=== PATIENT | female | born 1955 | race African-American/Black ===

== ENCOUNTER 2017-06-06 16:06 | Emergency (ER) | payer MEDICARE, MEDICAID ==
[~2017-06-06] VITALS: Ht 170.2 cm; Wt 68.0 kg
[~2017-06-06 16:06] MED LIST: ABAC1TAB3 PO; ACYC800T PO; AMLO5TAB4 PO; BACL20TA PO; BUSP10TA3 PO; DOLU50TA PO; FAMO20TA8 PO; GABA-534 PO; GUAI-671 PO; Gabapentin PO; LORA2TAB PO; MEGE40TA PO; MORP60CA18 PO; NYSTATIN PO; OXYB5TAB11 PO; OXYC-133 PO; TRAZ-147 PO
[2017-06-06] MEDS ORDERED: TRAM50TA2 PO (16:41)
--- NOTE | 2017-06-06 17:00 | NUR ---
US TECH VERBALIZED, THAT "I'LL BE BACK, BLADDER NEEDS TO BE FULL."
[2017-06-06 17:19] LABS: BASOPHILS # (AUTO) 0.1 K/uL (0.0-8.0); EOSINOPHILS # (AUTO) 0.2 K/uL (0.0-0.7); EOSINOPHILS % (AUTO) 3.3 % (0.0-7.0); HEMATOCRIT 41.7 % (37-47); HEMOGLOBIN 13.6 G/DL (12.0-16.0); LYMPHOCYTES # (AUTO) 2.6 K/UL (0.8-4.8); LYMPHOCYTES % (AUTO) 41.8 % (20.5-51.5); MEAN CORPUSCULAR HEMOGLOBIN 32.4 UUG (27.0-31.0); MEAN CORPUSCULAR HGB CONC 33 g/dL (32.0-37.0); MEAN CORPUSCULAR VOLUME 99.8 FL (81.0-99.0); MONOCYTES # (AUTO) 0.5 K/UL (0.1-1.30); MONOCYTES % (AUTO) 8.6 % (0.0-11.0); NEUTROPHILS # (AUTO) 2.8 K/UL (1.8-8.9); NEUTROPHILS % (AUTO) 45.3 % (38.5-71.5); PLATELET COUNT (AUTO) 213 K/UL (150-450); RED BLOOD CELL COUNT(AUTO) 4.18 MIL/UL (4.2-5.4); WHITE BLOOD COUNT (AUTO) 6.2 K/UL (4.0-11.2)
[2017-06-06 17:24] LABS: CREATININE 0.9 mg/dL (0.6-1.3); POTASSIUM 3.6 mmol/L (3.5-5.1)
[2017-06-06 17:30] LABS: BILIRUBIN,DIRECT 0.1 mg/dL (0.0-0.2); BILIRUBIN,TOTAL 0.3 mg/dL (0.2-1.0); TOTAL PROTEIN, SERUM 7.4 g/dL (6.4-8.2)
--- NOTE | 2017-06-06 17:53 | NUR ---
US TECH AT BEDSIDE
--- NOTE | 2017-06-06 18:23 | NUR ---
Patient discharged to home in stable conditon. Written and verbal after care instructions given. Patient verbalizes understanding of instructions.
[2017-06-06 18:24] VITALS: BP 112/71
== END 2017-06-06 18:25 | disposition home or self-care (01) ==
LOC: ER 16:08
DX: N95.0 Postmenopausal bleeding (principal); G43.909 Migraine, unspecified, not intractable, without status migrainosus; I10 Essential (primary) hypertension; M19.90 Unspecified osteoarthritis, unspecified site; Z88.0 Allergy status to penicillin
CPT/HCPCS: 36415; 76856; 85025; 85730; 86850; 86900; 86901; A4663

== ENCOUNTER 2017-11-12 16:39 | Inpatient (IN) | payer MEDICARE, MEDICAID ==
[~2017-11-12] VITALS: Ht 170.2 cm; Wt 73.9 kg
[~2017-11-12 16:39] MED LIST changes: -ABAC1TAB3 PO; -ACYC800T PO; -GABA-534 PO; -NYSTATIN PO; +TRAM50TA2 PO
[2017-11-12] MEDS ORDERED: ALBUTEROL SULFATE 2.5 MG/3 ML NEBU ONE ×2 (19:43→21:45)
[2017-11-12] MEDS ORDERED: ALBUTEROL SULFATE 2.5 MG/ 0.5 ML NEBU ONE ×2 (19:43→21:45)
[2017-11-12] MEDS ORDERED: MORPHINE SULFATE 4 MG/1 ML DISP.SYRIN IV ONE (19:45)
[2017-11-12] MEDS ORDERED: CEFTRIAXONE 1 G in IV DEXTROSE 5% 50 ML IV ONE (19:45)
[2017-11-12] MEDS ORDERED: AZITHROMYCIN IV 500 MG in IV DEXTROSE 5% 250 ML IV ONE (19:45)
[2017-11-12] MEDS ORDERED: BENZONATATE 100 MG CAPSULE PO ONE (19:45)
[2017-11-12] MEDS ORDERED: ALBUTEROL SULFATE 2.5 MG/3 ML NEBU NEB ONE ×2 (19:45→20:30)
[2017-11-12] MEDS ORDERED: BENZONATATE 100 MG CAPSULE ONE (20:21)
[2017-11-12] MEDS ORDERED: AZITHROMYCIN 250 MG TABLET ONE (20:21)
[2017-11-12] MEDS ORDERED: HYDROMORPHONE 4 MG/1 ML DISP.SYRIN ONE (20:22)
[2017-11-12] MEDS ORDERED: ONDANSETRON ODT 4 MG TAB.RAPDIS ONE (20:22)
[2017-11-12] MEDS ORDERED: LIDOCAINE HCL 2% 20 ML VIAL ONE (20:22)
[2017-11-12] MEDS ORDERED: CEFTRIAXONE 1 G VIAL ONE (20:22)
[2017-11-12] MEDS ORDERED: ONDANSETRON ODT 4 MG TAB.RAPDIS SL ONE (20:30)
[2017-11-12] MEDS ORDERED: HYDROMORPHONE 1 MG/1 ML DISP.SYRIN IM ONE (20:30)
[2017-11-12] MEDS ORDERED: IPRATROPIUM BROMIDE 0.5 MG/2.5 ML NEBU NEB ONE (20:30)
[2017-11-12] MEDS ORDERED: AZITHROMYCIN 250 MG TABLET PO ONE (21:00)
[2017-11-12] MEDS ORDERED: CEFTRIAXONE 1 G VIAL IM ONE (21:00)
[2017-11-12 21:33] LABS: *BILIRUBIN,URIN NEGATIVE (NEGATIVE); *BLOOD, URINE NEGATIVE (NEGATIVE); *CLARITY,URINE CLEAR (CLEAR); *COLOR,URINE YELLOW (YELLOW); *KETONES,URINE NEGATIVE (NEGATIVE); *PROTEIN,URINE 1+ (NEGATIVE); *UROBILINOGEN,URINE 0.2 E.U./dl (NORMAL); LEUKOCYTE ESTERASE ,URINE NEGATIVE (NEGATIVE); NITRITE, URINE NEGATIVE (NEGATIVE); UGLUCOSE TRACE (NEGATIVE)
[2017-11-12 21:42] LABS: BILIRUBIN,DIRECT 0.1 mg/dL (0.0-0.2); BILIRUBIN,TOTAL 0.4 mg/dL (0.2-1.0); POTASSIUM 4.3 mmol/L (3.5-5.1); TOTAL PROTEIN, SERUM 7.7 g/dL (6.4-8.2)
[2017-11-12] MEDS ORDERED: IPRATROPIUM BROMIDE 0.5 MG/2.5 ML NEBU ONE (21:45)
[2017-11-12 21:47] LABS: BASOPHILS # (AUTO) 0.1 K/uL (0.0-8.0); BASOPHILS % (AUTO) 0.5 % (0.0-2.0); EOSINOPHILS # (AUTO) 0.1 K/uL (0.0-0.7); EOSINOPHILS % (AUTO) 0.4 % (0.0-7.0); HEMATOCRIT 38.7 % (31.2-41.9); HEMOGLOBIN 12.8 g/dL (10.9-14.3); LYMPHOCYTES # (AUTO) 1.2 K/uL (20.0-40.0); LYMPHOCYTES % (AUTO) 7.9 % (20.5-51.5); MEAN CORPUSCULAR HEMOGLOBIN 33.5 uug (24.7-32.8); MEAN CORPUSCULAR HGB CONC 33 g/dL (32.3-35.6); MONOCYTES # (AUTO) 1.4 K/uL (2.0-10.0); MONOCYTES % (AUTO) 8.7 % (0.0-11.0); NEUTROPHILS # (AUTO) 12.9 K/uL (1.8-8.9); NEUTROPHILS % (AUTO) 82.5 % (38.5-71.5); PLATELET COUNT (AUTO) 234 K/uL (179-408); RED BLOOD CELL COUNT(AUTO) 3.83 MIL/uL (3.63-4.92); WHITE BLOOD COUNT (AUTO) 15.7 K/uL (3.8-11.8)
[2017-11-12 21:58] LABS: RBC,URINE 0-3 /HPF (0-3); WBC,URINE 0-3 /HPF (0-3)
[2017-11-12 21:59] LABS: BACTERIA,URINE NONE SEEN /HPF (NONE SEEN); SQUAMOUS EPITHELIAL CELL,UR NONE SEEN /HPF (NONE SEEN)
[2017-11-13 00:24] VITALS: BP 115/65
[2017-11-13] MEDS ORDERED: HYDROMORPHONE 2 MG/1 ML DISP.SYRIN IV PRN (03:00)
[2017-11-13] MEDS ORDERED: AZITHROMYCIN IV 500 MG in IV DEXTROSE 5% 250 ML IV SCH ×2 (03:00→21:00)
[2017-11-13] MEDS ORDERED: IPRATROPIUM BROMIDE 0.5 MG/2.5 ML NEBU NEB PRN (03:15)
[2017-11-13] MEDS ORDERED: ALBUTEROL SULFATE 2.5 MG/3 ML NEBU NEB PRN (03:15)
[2017-11-13] MEDS ORDERED: TRAZODONE 100 MG TABLET PO PRN (03:15)
[2017-11-13 04:00] VITALS: BP 114/65
[2017-11-13 07:37] LABS: BASOPHILS % (AUTO) 0.3 % (0.0-2.0); EOSINOPHILS % (AUTO) 0.1 % (0.0-7.0); HEMATOCRIT 38.9 % (31.2-41.9); HEMOGLOBIN 12.7 g/dL (10.9-14.3); LYMPHOCYTES # (AUTO) 1.5 K/uL (20.0-40.0); LYMPHOCYTES % (AUTO) 8.6 % (20.5-51.5); MEAN CORPUSCULAR HEMOGLOBIN 32.9 uug (24.7-32.8); MEAN CORPUSCULAR HGB CONC 33 g/dL (32.3-35.6); MEAN CORPUSCULAR VOLUME 100.9 fL (75.5-95.3); MONOCYTES # (AUTO) 1.5 K/uL (2.0-10.0); MONOCYTES % (AUTO) 8.2 % (0.0-11.0); NEUTROPHILS # (AUTO) 14.7 K/uL (1.8-8.9); NEUTROPHILS % (AUTO) 82.8 % (38.5-71.5); PLATELET COUNT (AUTO) 234 K/uL (179-408); RED BLOOD CELL COUNT(AUTO) 3.86 MIL/uL (3.63-4.92); WHITE BLOOD COUNT (AUTO) 17.8 K/uL (3.8-11.8)
[2017-11-13 07:58] LABS: BILIRUBIN,TOTAL 0.3 mg/dL (0.2-1.0); PHOSPHOROUS 2.9 mg/dL (2.5-4.9); POTASSIUM 4.5 mmol/L (3.5-5.1); TOTAL PROTEIN, SERUM 7.6 g/dL (6.4-8.2)
[2017-11-13] MEDS: MORPHINE SULFATE 4 MG/1 ML DISP.SYRIN IV PRN ×3 (08:32→20:46)
[2017-11-13] MEDS: ENOXAPARIN SODIUM 40 MG/0.4 ML DISP.SYRIN SQ SCH (08:33)
[2017-11-13] MEDS: FAMOTIDINE 20 MG TABLET PO SCH (08:36)
[2017-11-13] MEDS: busPIRone 10 MG TABLET PO SCH ×3 (08:36→17:56)
[2017-11-13] MEDS: BACLOFEN 20 MG TABLET PO SCH ×3 (08:36→17:55)
[2017-11-13] MEDS: OXYBUTYNIN CHLORIDE 5 MG TABLET PO SCH ×2 (08:36→17:55)
[2017-11-13] MEDS: IPRATROPIUM BROMIDE 0.5 MG/2.5 ML NEBU NEB PRN ×2 (08:48→21:16)
[2017-11-13] MEDS: ALBUTEROL SULFATE 1.25 MG/3 ML NEBU NEB PRN ×2 (08:49→21:16)
[2017-11-13] MEDS ORDERED: Medication Not On Formulary EA (Dolutegravir Sodium (Tivicay) 50 MG) PO SCH (09:00)
[2017-11-13] MEDS ORDERED: MORPHINE SULFATE 60 MG PO SCH (09:00)
[2017-11-13] MEDS ORDERED: AMLODIPINE 5 MG TABLET PO SCH (09:00)
[2017-11-13] MEDS ORDERED: LEVOFLOXACIN 500 MG/D5W 500 MG in PREMIXED 1 EACH IV ONE (09:00)
[2017-11-13] MEDS ORDERED: ABAC1TAB3 PO (11:27)
[2017-11-13 11:34] VITALS: BP 148/84
[2017-11-13] MEDS ORDERED: Medication Not On Formulary EA (Abacavir Sulfate/Lamivudine (Epzicom Tablet) 1 TAB) PO SCH (12:00)
[2017-11-13] MEDS: TRAMADOL HCL 50 MG TABLET PO SCH ×2 (12:19→20:42)
[2017-11-13] MEDS: MEGESTROL ACETATE 20 MG TABLET PO SCH ×3 (12:19→23:53)
[2017-11-13] MEDS ORDERED: MORPHINE SULFATE 2 MG/1 ML DISP.SYRIN IM SCH (16:00)
[2017-11-13 16:18] VITALS: BP 152/85
[2017-11-13] MEDS: LORAZEPAM 1 MG TABLET PO SCH (16:44)
[2017-11-13] MEDS: GABAPENTIN 300 MG CAPSULE PO SCH (17:55)
[2017-11-13] MEDS: ACETAMINOPHEN ES 500 MG TABLET PO PRN (17:56)
[2017-11-13 20:31] VITALS: BP 143/89
[2017-11-13] MEDS: TRAZODONE 100 MG TABLET PO SCH (20:43)
[2017-11-13] MEDS ORDERED: TRAZODONE 100 MG TABLET PO SCH (21:00)
[2017-11-13] MEDS: GUAIFENESIN/CODEINE 5 ML LIQUID UDC PO PRN (21:42)
[2017-11-13] MEDS: IV 1/2NS 1000 ML 1,000 ML IV PRN (22:45)
[2017-11-14] MEDS: MORPHINE SULFATE 4 MG/1 ML DISP.SYRIN IV PRN ×5 (03:38→21:38)
[2017-11-14] MEDS: ACETAMINOPHEN ES 500 MG TABLET PO PRN ×2 (03:40→19:41)
[2017-11-14] MEDS: GUAIFENESIN/CODEINE 5 ML LIQUID UDC PO PRN ×2 (03:49→12:57)
[2017-11-14 04:30] VITALS: BP 145/66
[2017-11-14] MEDS: MEGESTROL ACETATE 20 MG TABLET PO SCH ×3 (06:03→17:20)
[2017-11-14 06:55] LABS: BASOPHILS # (AUTO) 0.1 K/uL (0.0-8.0); BASOPHILS % (AUTO) 0.4 % (0.0-2.0); EOSINOPHILS # (AUTO) 0.2 K/uL (0.0-0.7); EOSINOPHILS % (AUTO) 1.2 % (0.0-7.0); HEMATOCRIT 36.8 % (31.2-41.9); HEMOGLOBIN 12.1 g/dL (10.9-14.3); LYMPHOCYTES # (AUTO) 2.4 K/uL (20.0-40.0); LYMPHOCYTES % (AUTO) 16.7 % (20.5-51.5); MEAN CORPUSCULAR HEMOGLOBIN 33.2 uug (24.7-32.8); MEAN CORPUSCULAR HGB CONC 33 g/dL (32.3-35.6); MEAN CORPUSCULAR VOLUME 100.9 fL (75.5-95.3); MONOCYTES # (AUTO) 1.4 K/uL (2.0-10.0); MONOCYTES % (AUTO) 9.8 % (0.0-11.0); NEUTROPHILS # (AUTO) 10.4 K/uL (1.8-8.9); NEUTROPHILS % (AUTO) 71.9 % (38.5-71.5); PLATELET COUNT (AUTO) 255 K/uL (179-408); RED BLOOD CELL COUNT(AUTO) 3.65 MIL/uL (3.63-4.92); WHITE BLOOD COUNT (AUTO) 14.4 K/uL (3.8-11.8)
[2017-11-14 07:17] LABS: BILIRUBIN,TOTAL 0.2 mg/dL (0.2-1.0); CREATININE 0.9 mg/dL (0.6-1.3); MAGNESIUM 1.9 mg/dL (1.8-2.4); PHOSPHOROUS 3.4 mg/dL (2.5-4.9); TOTAL PROTEIN, SERUM 7.3 g/dL (6.4-8.2)
[2017-11-14] MEDS ORDERED: MORP60TA34 PO (08:20)
[2017-11-14] MEDS: MORPHINE SULFATE SR 30 MG TABLET.SA PO SCH ×2 (09:00→21:00)
[2017-11-14] MEDS: ENOXAPARIN SODIUM 40 MG/0.4 ML DISP.SYRIN SQ SCH (09:00)
[2017-11-14] MEDS: OXYBUTYNIN CHLORIDE 5 MG TABLET PO SCH ×2 (09:07→16:50)
[2017-11-14] MEDS: FAMOTIDINE 20 MG TABLET PO SCH (09:07)
[2017-11-14] MEDS: GABAPENTIN 300 MG CAPSULE PO SCH ×3 (09:07→16:50)
[2017-11-14] MEDS: TRAMADOL HCL 50 MG TABLET PO SCH ×2 (09:07→21:15)
[2017-11-14] MEDS: BACLOFEN 20 MG TABLET PO SCH ×3 (09:07→16:50)
[2017-11-14] MEDS: LORAZEPAM 1 MG TABLET PO SCH ×2 (09:07→16:51)
[2017-11-14] MEDS: busPIRone 10 MG TABLET PO SCH ×3 (09:07→16:50)
[2017-11-14 09:50] VITALS: BP 131/73
[2017-11-14] MEDS: LEVOFLOXACIN 500 MG/D5W 500 MG in PREMIXED 1 EACH IV SCH (09:50)
[2017-11-14] MEDS: TIVICAY 50 MG PO SCH (09:50)
[2017-11-14] MEDS: EPZICOM PO SCH (09:50)
[2017-11-14 11:42] VITALS: BP 109/70
[2017-11-14] MEDS: IV 1/2NS 1000 ML 1,000 ML IV PRN (11:54)
[2017-11-14 15:53] VITALS: BP 116/71
[2017-11-14] MEDS: ALBUTEROL SULFATE 1.25 MG/3 ML NEBU NEB PRN (19:50)
[2017-11-14] MEDS: IPRATROPIUM BROMIDE 0.5 MG/2.5 ML NEBU NEB PRN (19:50)
[2017-11-14 20:26] VITALS: BP 138/76
[2017-11-14 21:10] VITALS: BP 118/60
[2017-11-14] MEDS: TRAZODONE 100 MG TABLET PO SCH (21:14)
[2017-11-15] MEDS: MEGESTROL ACETATE 20 MG TABLET PO SCH ×4 (00:21→17:04)
[2017-11-15] MEDS: IV 1/2NS 1000 ML 1,000 ML IV PRN ×2 (00:32→14:48)
[2017-11-15] MEDS: MORPHINE SULFATE 4 MG/1 ML DISP.SYRIN IV PRN ×6 (01:35→22:41)
[2017-11-15] MEDS: GUAIFENESIN/CODEINE 5 ML LIQUID UDC PO PRN ×3 (01:41→21:09)
[2017-11-15 04:00] VITALS: BP 143/77
[2017-11-15 06:50] LABS: BILIRUBIN,TOTAL 0.2 mg/dL (0.2-1.0); CREATININE 0.8 mg/dL (0.6-1.3); PHOSPHOROUS 3.1 mg/dL (2.5-4.9); POTASSIUM 3.9 mmol/L (3.5-5.1); TOTAL PROTEIN, SERUM 7.1 g/dL (6.4-8.2)
[2017-11-15 07:28] LABS: BASOPHILS % (AUTO) 0.3 % (0.0-2.0); EOSINOPHILS # (AUTO) 0.2 K/uL (0.0-0.7); EOSINOPHILS % (AUTO) 2.2 % (0.0-7.0); HEMATOCRIT 36.7 % (31.2-41.9); HEMOGLOBIN 12.1 g/dL (10.9-14.3); LYMPHOCYTES # (AUTO) 2.9 K/uL (20.0-40.0); LYMPHOCYTES % (AUTO) 29.5 % (20.5-51.5); MEAN CORPUSCULAR HEMOGLOBIN 33.2 uug (24.7-32.8); MEAN CORPUSCULAR HGB CONC 33 g/dL (32.3-35.6); MEAN CORPUSCULAR VOLUME 100.5 fL (75.5-95.3); MONOCYTES # (AUTO) 0.9 K/uL (2.0-10.0); MONOCYTES % (AUTO) 8.7 % (0.0-11.0); NEUTROPHILS # (AUTO) 5.9 K/uL (1.8-8.9); NEUTROPHILS % (AUTO) 59.3 % (38.5-71.5); PLATELET COUNT (AUTO) 265 K/uL (179-408); RED BLOOD CELL COUNT(AUTO) 3.65 MIL/uL (3.63-4.92)
[2017-11-15 07:42] LABS: WHITE BLOOD COUNT (AUTO) 9.9 K/uL (3.8-11.8)
[2017-11-15] MEDS: LORAZEPAM 1 MG TABLET PO SCH ×2 (08:49→17:04)
[2017-11-15] MEDS: BACLOFEN 20 MG TABLET PO SCH ×3 (08:49→17:04)
[2017-11-15] MEDS: MORPHINE SULFATE SR 30 MG TABLET.SA PO SCH ×2 (08:49→21:09)
[2017-11-15] MEDS: OXYBUTYNIN CHLORIDE 5 MG TABLET PO SCH ×2 (08:49→17:06)
[2017-11-15] MEDS: GABAPENTIN 300 MG CAPSULE PO SCH ×3 (08:49→17:04)
[2017-11-15] MEDS: TRAMADOL HCL 50 MG TABLET PO SCH ×2 (08:50→21:09)
[2017-11-15] MEDS: TIVICAY 50 MG PO SCH (08:52)
[2017-11-15] MEDS: ENOXAPARIN SODIUM 40 MG/0.4 ML DISP.SYRIN SQ SCH (08:52)
[2017-11-15] MEDS: EPZICOM PO SCH (08:53)
[2017-11-15] MEDS: DOCUSATE SODIUM 100 MG CAPSULE PO SCH ×2 (08:56→21:08)
[2017-11-15] MEDS: busPIRone 10 MG TABLET PO SCH ×3 (08:56→17:04)
[2017-11-15] MEDS: LEVOFLOXACIN 500 MG/D5W 500 MG in PREMIXED 1 EACH IV SCH (08:56)
[2017-11-15 09:22] VITALS: BP 128/81
[2017-11-15] MEDS: FAMOTIDINE 20 MG TABLET PO SCH (09:50)
[2017-11-15] MEDS ORDERED: FLUCONAZOLE 100 MG TABLET PO ONE ×2 (11:45→12:00)
[2017-11-15 11:50] VITALS: BP 107/70
[2017-11-15 16:18] VITALS: BP 110/62
[2017-11-15 20:34] VITALS: BP 122/62
[2017-11-15] MEDS: TRAZODONE 100 MG TABLET PO SCH (21:08)
[2017-11-16] MEDS: MEGESTROL ACETATE 20 MG TABLET PO SCH ×5 (00:30→23:02)
[2017-11-16] MEDS: ACETAMINOPHEN ES 500 MG TABLET PO PRN (00:33)
[2017-11-16] MEDS: MORPHINE SULFATE 4 MG/1 ML DISP.SYRIN IV PRN ×5 (03:52→20:27)
[2017-11-16 04:00] VITALS: BP 135/73
[2017-11-16] MEDS: IV 1/2NS 1000 ML 1,000 ML IV PRN ×2 (04:15→18:43)
[2017-11-16] MEDS: LEVOFLOXACIN 500 MG/D5W 500 MG in PREMIXED 1 EACH IV SCH (08:10)
[2017-11-16] MEDS: DOCUSATE SODIUM 100 MG CAPSULE PO SCH ×2 (08:11→21:03)
[2017-11-16] MEDS: BACLOFEN 20 MG TABLET PO SCH ×3 (08:11→16:18)
[2017-11-16] MEDS: GUAIFENESIN/CODEINE 5 ML LIQUID UDC PO PRN ×2 (08:11→23:03)
[2017-11-16] MEDS: FAMOTIDINE 20 MG TABLET PO SCH (08:11)
[2017-11-16] MEDS: OXYBUTYNIN CHLORIDE 5 MG TABLET PO SCH ×2 (08:12→16:19)
[2017-11-16] MEDS: LORAZEPAM 1 MG TABLET PO SCH ×2 (08:13→16:18)
[2017-11-16] MEDS: busPIRone 10 MG TABLET PO SCH ×3 (08:13→16:18)
[2017-11-16] MEDS: GABAPENTIN 300 MG CAPSULE PO SCH ×3 (08:13→16:18)
[2017-11-16] MEDS: ENOXAPARIN SODIUM 40 MG/0.4 ML DISP.SYRIN SQ SCH (08:28)
[2017-11-16] MEDS ORDERED: MAGNESIUM CITRATE 296 ML BOTTLE PO ONE (09:00)
[2017-11-16] MEDS: MORPHINE SULFATE SR 30 MG TABLET.SA PO SCH ×2 (09:00→21:04)
[2017-11-16] MEDS: TRAMADOL HCL 50 MG TABLET PO SCH ×2 (09:00→21:05)
[2017-11-16] MEDS: TIVICAY 50 MG PO SCH (09:37)
[2017-11-16] MEDS: EPZICOM PO SCH (09:37)
[2017-11-16 11:51] VITALS: BP 116/67
[2017-11-16 16:14] VITALS: BP 123/65
[2017-11-16 20:17] VITALS: BP 135/70
[2017-11-16] MEDS: TRAZODONE 100 MG TABLET PO SCH (21:03)
[2017-11-17] MEDS: MORPHINE SULFATE 4 MG/1 ML DISP.SYRIN IV PRN ×3 (00:33→09:50)
[2017-11-17] MEDS: MEGESTROL ACETATE 20 MG TABLET PO SCH ×2 (05:32→12:27)
[2017-11-17 06:41] LABS: BASOPHILS % (AUTO) 0.6 % (0.0-2.0); EOSINOPHILS # (AUTO) 0.2 K/uL (0.0-0.7); EOSINOPHILS % (AUTO) 2.8 % (0.0-7.0); HEMATOCRIT 38.4 % (31.2-41.9); HEMOGLOBIN 12.5 g/dL (10.9-14.3); LYMPHOCYTES # (AUTO) 3.1 K/uL (20.0-40.0); LYMPHOCYTES % (AUTO) 41.9 % (20.5-51.5); MEAN CORPUSCULAR HGB CONC 33 g/dL (32.3-35.6); MEAN CORPUSCULAR VOLUME 100.9 fL (75.5-95.3); MONOCYTES # (AUTO) 0.6 K/uL (2.0-10.0); MONOCYTES % (AUTO) 8.6 % (0.0-11.0); NEUTROPHILS # (AUTO) 3.4 K/uL (1.8-8.9); NEUTROPHILS % (AUTO) 46.1 % (38.5-71.5); PLATELET COUNT (AUTO) 265 K/uL (179-408); WHITE BLOOD COUNT (AUTO) 7.4 K/uL (3.8-11.8)
[2017-11-17 06:48] LABS: BILIRUBIN,TOTAL 0.2 mg/dL (0.2-1.0); CREATININE 0.9 mg/dL (0.6-1.3); MAGNESIUM 2.1 mg/dL (1.8-2.4); PHOSPHOROUS 3.2 mg/dL (2.5-4.9); POTASSIUM 3.9 mmol/L (3.5-5.1); TOTAL PROTEIN, SERUM 6.7 g/dL (6.4-8.2)
[2017-11-17] MEDS: TIVICAY 50 MG PO SCH (08:46)
[2017-11-17] MEDS: DOCUSATE SODIUM 100 MG CAPSULE PO SCH (08:47)
[2017-11-17] MEDS: EPZICOM PO SCH (08:47)
[2017-11-17] MEDS: BACLOFEN 20 MG TABLET PO SCH ×2 (08:47→12:27)
[2017-11-17] MEDS: FAMOTIDINE 20 MG TABLET PO SCH (08:47)
[2017-11-17] MEDS: LORAZEPAM 1 MG TABLET PO SCH (08:47)
[2017-11-17] MEDS: OXYBUTYNIN CHLORIDE 5 MG TABLET PO SCH (08:47)
[2017-11-17] MEDS: busPIRone 10 MG TABLET PO SCH ×2 (08:47→12:27)
[2017-11-17] MEDS: MORPHINE SULFATE SR 30 MG TABLET.SA PO SCH (08:48)
[2017-11-17] MEDS: GABAPENTIN 300 MG CAPSULE PO SCH ×2 (08:48→12:27)
[2017-11-17] MEDS: ENOXAPARIN SODIUM 40 MG/0.4 ML DISP.SYRIN SQ SCH (08:48)
[2017-11-17] MEDS: TRAMADOL HCL 50 MG TABLET PO SCH (08:48)
[2017-11-17] MEDS: LEVOFLOXACIN 500 MG/D5W 500 MG in PREMIXED 1 EACH IV SCH (08:49)
[2017-11-17] MEDS: GUAIFENESIN/CODEINE 5 ML LIQUID UDC PO PRN (08:51)
[2017-11-17 09:59] VITALS: BP 136/81
[2017-11-17 11:55] VITALS: BP 131/66
[2017-11-17] MEDS ORDERED: LEVO500T2 PO (12:29)
[2017-11-17] MEDS ORDERED: FLUCONAZOLE 200 MG TABLET PO ONE (13:30)
[2017-11-17] MEDS ORDERED: MORPHINE SULFATE 2 MG/1 ML DISP.SYRIN IV ONE (13:45)
[2017-11-17] MEDS ORDERED: MORPHINE SULFATE 4 MG/1 ML DISP.SYRIN IV ONE (14:00)
== END 2017-11-17 15:30 | disposition home or self-care (01) | DRG 194 ==
LOC: ER 16:39 → MED 23:51
PROVIDERS: ADMIT Internal Medicine; ATTEND Internal Medicine
PROC: 05H633Z Insertion of Infusion Device into Left Subclavian Vein, Percutaneous Approach (ICD-10-PCS; principal; 2017-11-13)
DX: J18.9 Pneumonia, unspecified organism (principal); F11.20 Opioid dependence, uncomplicated; D89.9 Disorder involving the immune mechanism, unspecified; G43.909 Migraine, unspecified, not intractable, without status migrainosus; G89.4 Chronic pain syndrome; M19.90 Unspecified osteoarthritis, unspecified site; I10 Essential (primary) hypertension; R53.1 Weakness; R07.81 Pleurodynia
CPT/HCPCS: 36415; 70030-TC; 71046; 83605; 83735; 84100; 85025; 85730; 87040; 87070; 87086; 87400; 92610; 94640; 94664; A4663; A9150; J0456; J0696; J1170; J1650; J1956; J2270; J3490; J3590; J7050; J7060; Q0144; Q0162

== ENCOUNTER 2018-04-22 20:09 | Emergency (ER) | payer MEDICARE, MEDICAID ==
[~2018-04-22] VITALS: Ht 167.6 cm; Wt 70.8 kg
[~2018-04-22 20:09] MED LIST changes: +ABAC1TAB3 PO; +LEVO500T2 PO; -MORP60CA18 PO; +MORP60TA34 PO; -TRAZ-147 PO; +TRAZ-214 PO
--- NOTE | 2018-04-22 20:50 | NUR ---
DR. ROCHE AT BEDSIDE FOR MSE.
[2018-04-22] MEDS ORDERED: MORPHINE SULFATE 4 MG/1 ML DISP.SYRIN ONE ×2 (21:26→22:02)
[2018-04-22] MEDS ORDERED: MORPHINE SULFATE 4 MG/1 ML DISP.SYRIN SQ ONE ×2 (21:30→22:00)
--- NOTE | 2018-04-22 22:08 | NUR ---
Patient discharged to home in stable conditon. Written and verbal after care instructions given. Patient verbalizes understanding of instructions. PATIENT LEFT WITH STABLE GAIT.
[2018-04-22 22:09] VITALS: BP 132/86
== END 2018-04-22 22:15 | disposition home or self-care (01) ==
LOC: ER 20:09
DX: S29.012A Strain of muscle and tendon of back wall of thorax, initial encounter (principal); I10 Essential (primary) hypertension; F11.10 Opioid abuse, uncomplicated; Z88.0 Allergy status to penicillin; Z88.2 Allergy status to sulfonamides; Z88.8 Allergy status to other drugs, medicaments and biological substances; X50.0XXA Overexertion from strenuous movement or load, initial encounter; Y93.89 Activity, other specified; Y92.89 Other specified places as the place of occurrence of the external cause; Y99.8 Other external cause status
CPT/HCPCS: 71101; 96372 ×2; 99284; A4663; J2270 ×2

== ENCOUNTER 2018-09-09 14:28 | Emergency (ER) | payer MEDICARE, MEDICAID ==
[~2018-09-09] VITALS: Ht 170.2 cm; Wt 69.4 kg
--- NOTE | 2018-09-09 15:20 | NUR ---
Patient discharged to home in stable conditon. Written and verbal after care instructions given. Patient verbalizes understanding of instructions.
== END 2018-09-09 15:21 | disposition home or self-care (01) ==
LOC: ER 14:28
DX: R05 Cough (principal); I10 Essential (primary) hypertension; G89.29 Other chronic pain; M54.9 Dorsalgia, unspecified; Z88.0 Allergy status to penicillin; Z88.2 Allergy status to sulfonamides; Z88.1 Allergy status to other antibiotic agents; Z88.8 Allergy status to other drugs, medicaments and biological substances; F11.10 Opioid abuse, uncomplicated; Z79.891 Long term (current) use of opiate analgesic; Z79.2 Long term (current) use of antibiotics; Z79.899 Other long term (current) drug therapy
CPT/HCPCS: 71045; A4663

== ENCOUNTER 2018-11-06 13:37 | Emergency (ER) | payer MEDICARE, MEDICAID ==
[~2018-11-06] VITALS: Ht 170.2 cm; Wt 69.4 kg
[~2018-11-06 13:37] MED LIST changes: -GUAI-671 PO; -LEVO500T2 PO; -OXYC-133 PO
[2018-11-06] MEDS ORDERED: MORPHINE SULFATE 2 MG/1 ML DISP.SYRIN IV ONE (14:00)
[2018-11-06] MEDS ORDERED: ONDANSETRON 4 MG/2 ML VIAL IV ONE (14:00)
[2018-11-06] MEDS ORDERED: IV NORMAL SALINE 1000 ML BAG IV ONE (14:00)
[2018-11-06] MEDS ORDERED: MORPHINE SULFATE 4 MG/1 ML DISP.SYRIN IM ONE (14:30)
[2018-11-06] MEDS ORDERED: ONDANSETRON ODT 4 MG TAB.RAPDIS SL ONE (14:30)
--- NOTE | 2018-11-06 14:36 | NUR ---
PATIENT WAS SEEN BY . SHE IS RFUSING IV AND LAB RAW. DR WALKER NOTIFIED. PATIENT STATES SHE PREFERS "[facility]". NOTIFIED.
[2018-11-06] MEDS ORDERED: ONDANSETRON ODT 4 MG TAB.RAPDIS ONE (14:40)
[2018-11-06] MEDS ORDERED: MORPHINE SULFATE 4 MG/1 ML DISP.SYRIN ONE (14:41)
--- NOTE | 2018-11-06 16:08 | NUR ---
PATIENT STATES HEADACHE HAS IMPROVED, LESS NAUSEA REPORTED ALSO. PATIENT LEFT ER WITHOUT DC PAPERS AND INSTRUCTION...
== END 2018-11-06 16:11 | disposition left against medical advice (07) ==
LOC: ER 13:37
DX: G43.909 Migraine, unspecified, not intractable, without status migrainosus (principal); G89.29 Other chronic pain; M54.9 Dorsalgia, unspecified; I10 Essential (primary) hypertension; F11.10 Opioid abuse, uncomplicated; Z88.0 Allergy status to penicillin; Z88.2 Allergy status to sulfonamides; Z88.1 Allergy status to other antibiotic agents; Z88.8 Allergy status to other drugs, medicaments and biological substances; Z79.891 Long term (current) use of opiate analgesic; Z79.899 Other long term (current) drug therapy
CPT/HCPCS: 70450; 96372; 99284; J2270; A4663; J7030; Q0162

== ENCOUNTER 2019-04-10 20:40 | Emergency (ER) | payer MEDICARE, MEDICAID ==
[~2019-04-10] VITALS: Ht 165.1 cm; Wt 70.8 kg
--- NOTE | 2019-04-10 21:00 | NUR ---
Patient walked into ER with steady gait BIB friend c/o brock GENAO with nausea x8hrs. Here for worsening pain. No distress noted
[2019-04-10] MEDS ORDERED: MORPHINE SULFATE 4 MG/1 ML DISP.SYRIN ONE (21:27)
[2019-04-10] MEDS ORDERED: ONDANSETRON 4 MG/2 ML VIAL ONE (21:27)
[2019-04-10] MEDS ORDERED: ONDANSETRON 4 MG/2 ML VIAL IM ONE (21:30)
[2019-04-10] MEDS ORDERED: MORPHINE SULFATE 4 MG/1 ML DISP.SYRIN IM ONE (21:30)
--- NOTE | 2019-04-10 21:40 | NUR ---
Patient states migraine GENAO is 5/10 from 05/13. Also states nausea has resolved
[2019-04-10 21:55] VITALS: BP 127/55
== END 2019-04-10 21:56 | disposition home or self-care (01) ==
LOC: ER 20:40
DX: G43.909 Migraine, unspecified, not intractable, without status migrainosus (principal); F32.9 Major depressive disorder, single episode, unspecified; Z88.0 Allergy status to penicillin; Z88.2 Allergy status to sulfonamides; Z88.8 Allergy status to other drugs, medicaments and biological substances; Z79.899 Other long term (current) drug therapy
CPT/HCPCS: 93005; 96372 ×2; 99283; J2270; J2405; A4663

== ENCOUNTER 2024-12-29 17:30 | Inpatient (IN) | payer MEDICARE, OTHER ==
[~2024-12-29] VITALS: Ht 167.6 cm; Wt 65.8 kg
[~2024-12-29 17:30] MED LIST changes: -MEGE40TA PO; +MEGE40TA5 PO; -OXYB5TAB11 PO; +OXYB5TAB16 PO; -TRAZ-214 PO; +TRAZ-257 PO
[2024-12-29] MEDS ORDERED: MORPHINE SULFATE 2 MG/1 ML DISP.SYRIN ONE (18:20)
[2024-12-29] MEDS ORDERED: ONDANSETRON 4 MG/2 ML VIAL ONE (18:20)
[2024-12-29] MEDS: MORPHINE SULFATE 2 MG/1 ML DISP.SYRIN IV ONE (18:37)
[2024-12-29 18:40] LABS: BASOPHILS # (AUTO) 0.1 K/UL (0.0-0.2); EOSINOPHILS # (AUTO) 0.1 K/uL (0.0-0.7); EOSINOPHILS % (AUTO) 1.1 % (0.0-7.0); HEMATOCRIT 46.8 % (31.2-41.9); HEMOGLOBIN 15.9 g/dL (10.9-14.3); LYMPHOCYTES # (AUTO) 3.1 K/uL (0.8-4.8); LYMPHOCYTES % (AUTO) 42.6 % (20.5-51.5); MEAN CORPUSCULAR HEMOGLOBIN 35.4 uug (24.7-32.8); MEAN CORPUSCULAR HGB CONC 34 g/dL (32.3-35.6); MEAN CORPUSCULAR VOLUME 104.5 fL (75.5-95.3); MONOCYTES # (AUTO) 0.8 K/uL (0.1-1.30); MONOCYTES % (AUTO) 10.7 % (0.0-11.0); NEUTROPHILS # (AUTO) 3.2 K/uL (1.8-8.9); NEUTROPHILS % (AUTO) 44.6 % (38.5-71.5); PLATELET COUNT (AUTO) 221 K/uL (179-408); RED BLOOD CELL COUNT(AUTO) 4.48 MIL/uL (3.63-4.92); RED CELL DISTRIBUTION WIDTH 14.9 % (12.3-17.7); WHITE BLOOD COUNT (AUTO) 7.2 K/uL (3.8-11.8)
[2024-12-29] MEDS: ONDANSETRON 4 MG/2 ML VIAL IV ONE (18:40)
[2024-12-29] MEDS: IV NS 1000 ML 1,000 ML IV ONE (18:40)
[2024-12-29 18:45] LABS: DIFFERENTIAL COMMENT 1
[2024-12-29] MEDS: MORPHINE SULFATE 4 MG/1 ML DISP.SYRIN IV ONE (20:00)
[2024-12-29] MEDS: IV NORMAL SALINE 500 ML IV ONE (21:45)
[2024-12-29 23:23] LABS: *BILIRUBIN,URIN NEGATIVE (NEGATIVE); *BLOOD, URINE 2+ (NEGATIVE); *COLOR,URINE YELLOW (YELLOW); *KETONES,URINE NEGATIVE (NEGATIVE); *PROTEIN,URINE NEGATIVE (NEGATIVE); *UROBILINOGEN,URINE 0.2 E.U./dl (NORMAL); LEUKOCYTE ESTERASE ,URINE 1+ (NEGATIVE); NITRITE, URINE NEGATIVE (NEGATIVE); PH,URINE 5.5 (5.0-8.0); UGLUCOSE NEGATIVE (NEGATIVE)
[2024-12-29] MEDS ORDERED: HYDROCODONE/APAP 10-325 MG TABLET ONE (23:32)
[2024-12-29 23:33] LABS: *CLARITY,URINE SLIGHTLY HAZY (CLEAR)
[2024-12-29] MEDS: HYDROCODONE/APAP 10-325 MG TABLET PO ONE (23:35)
[2024-12-29 23:37] LABS: BACTERIA,URINE MANY /HPF (NONE SEEN); SQUAMOUS EPITHELIAL CELL,UR FEW /HPF (NONE SEEN); WBC,URINE 20-50 /HPF (0-3)
[2024-12-30] MEDS ORDERED: ACETAMINOPHEN 325 MG TABLET PO PRN (00:30)
[2024-12-30] MEDS ORDERED: MAGNESIUM HYDROXIDE 30 ML LIQUID UDC PO PRN (00:30)
[2024-12-30] MEDS ORDERED: REMEDY ESSENTIAL ZINC PASTE 113 GM TP PRN (00:30)
[2024-12-30] MEDS: CEFTRIAXONE 1 G in IV DEXTROSE 5% 50 ML IV ONE (00:52)
[2024-12-30] MEDS: MORPHINE SULFATE 2 MG/1 ML DISP.SYRIN IV ONE (02:27)
[2024-12-30] MEDS: busPIRone 10 MG TABLET PO SCH (08:20)
[2024-12-30] MEDS: FAMOTIDINE 20 MG TABLET PO SCH (08:20)
[2024-12-30] MEDS: TRAMADOL HCL 50 MG TABLET PO SCH (08:21)
[2024-12-30] MEDS: LORAZEPAM 1 MG TABLET PO SCH (08:21)
[2024-12-30] MEDS: AMLODIPINE 5 MG TABLET PO SCH (08:22)
[2024-12-30] MEDS ORDERED: GABAPENTIN 300 MG CAPSULE PO SCH (09:00)
[2024-12-30] MEDS ORDERED: BACLOFEN 20 MG TABLET PO SCH (09:00)
[2024-12-30] MEDS ORDERED: MORPHINE SULFATE 60 MG PO SCH (09:00)
[2024-12-30] MEDS: ONDANSETRON 4 MG/2 ML VIAL IV PRN (10:03)
[2024-12-30 11:43] VITALS: BP 122/55; TEMP 99.3; O2SAT 99
[2024-12-30] MEDS ORDERED: MEGESTROL ACETATE 20 MG TABLET PO SCH (12:00)
[2024-12-30] MEDS ORDERED: GABA800T11 PO (12:05)
[2024-12-30] MEDS: MORPHINE SULFATE 2 MG/1 ML DISP.SYRIN IV PRN (12:10)
[2024-12-30] MEDS ORDERED: PANT40TA2 PO (12:11)
[2024-12-30] MEDS: GABAPENTIN 400 MG CAPSULE PO SCH (12:18)
[2024-12-30] MEDS ORDERED: OXYB10TA30 PO (12:21)
[2024-12-30] MEDS: CIPROFLOXACIN IV 400 MG in PREMIXED 1 EACH IV SCH (13:00)
[2024-12-30 15:50] VITALS: BP 128/68; TEMP 98.7; O2SAT 99
[2024-12-30 19:40] VITALS: BP 120/64; TEMP 98.6; O2SAT 98
[2024-12-30] MEDS: TRAZODONE 100 MG TABLET PO SCH (20:55)
[2024-12-31] MEDS: IV NS 1000 ML 1,000 ML IV PRN (00:15)
[2024-12-31 05:50] VITALS: BP 125/63; TEMP 99.2; O2SAT 97
[2024-12-31] MEDS: PANTOPRAZOLE SODIUM 40 MG TABLET.DR PO SCH (06:29)
[2024-12-31 07:28] LABS: BASOPHILS % (AUTO) 0.6 % (0.0-2.0); EOSINOPHILS # (AUTO) 0.1 K/uL (0.0-0.7); EOSINOPHILS % (AUTO) 2.9 % (0.0-7.0); HEMATOCRIT 36.2 % (31.2-41.9); HEMOGLOBIN 12.3 g/dL (10.9-14.3); LYMPHOCYTES # (AUTO) 2.1 K/uL (0.8-4.8); LYMPHOCYTES % (AUTO) 41.6 % (20.5-51.5); MEAN CORPUSCULAR HEMOGLOBIN 35.5 uug (24.7-32.8); MEAN CORPUSCULAR HGB CONC 34 g/dL (32.3-35.6); MEAN CORPUSCULAR VOLUME 104.1 fL (75.5-95.3); MONOCYTES # (AUTO) 0.6 K/uL (0.1-1.30); NEUTROPHILS # (AUTO) 2.2 K/uL (1.8-8.9); NEUTROPHILS % (AUTO) 43.9 % (38.5-71.5); PLATELET COUNT (AUTO) 175 K/uL (179-408); RED BLOOD CELL COUNT(AUTO) 3.48 MIL/uL (3.63-4.92); RED CELL DISTRIBUTION WIDTH 14.5 % (12.3-17.7); WHITE BLOOD COUNT (AUTO) 5.1 K/uL (3.8-11.8)
[2024-12-31 07:32] LABS: DIFFERENTIAL COMMENT 1
[2024-12-31 07:52] LABS: CALCIUM 9.4 mg/dL (8.5-10.1); CREATININE 0.9 mg/dL (0.6-1.3); MAGNESIUM 1.8 mg/dL (1.8-2.4); PHOSPHOROUS 3.3 mg/dL (2.5-4.9); POTASSIUM 3.9 mmol/L (3.5-5.1)
[2024-12-31 08:00] VITALS: BP 137/71; TEMP 99.1; O2SAT 96
[2024-12-31 12:00] VITALS: BP 110/54; TEMP 99.1; O2SAT 96
[2024-12-31 16:00] VITALS: BP 129/58; TEMP 97; O2SAT 100
[2024-12-31] MEDS ORDERED: LORAZEPAM 0.5 MG TABLET PO PRN (18:30)
[2024-12-31 20:16] VITALS: BP 126/55; TEMP 99.2; O2SAT 98
[2025-01-01 05:47] VITALS: BP 126/55; TEMP 99.2; O2SAT 98
[2025-01-01 06:50] VITALS: BP 134/74; TEMP 98.7; O2SAT 98
[2025-01-01 09:13] VITALS: BP 146/66; TEMP 98.7; O2SAT 98
[2025-01-01 11:20] VITALS: BP 153/67; TEMP 99.2; O2SAT 98
[2025-01-01] MEDS: TIZANIDINE HCL 4 MG TABLET PO PRN (13:48)
[2025-01-01 16:02] VITALS: BP 136/68; TEMP 99.1; O2SAT 96
[2025-01-01] MEDS ORDERED: ACET325T53 PO (18:58)
[2025-01-01] MEDS ORDERED: CIPR400P6 IV (18:58)
[2025-01-01] MEDS ORDERED: MAGN400O6 PO (19:01)
[2025-01-01] MEDS ORDERED: ONDA4SYR IV (19:01)
[2025-01-01] MEDS ORDERED: PETR113P TP (19:03)
== END 2025-01-01 17:47 | DRG 690 ==
LOC: ER 17:30 → MEDSURG3 12-30 05:18
PROVIDERS: ADMIT Nurse Practitioner Acute Care; ATTEND Internal Medicine
PROC: 05HC33Z Insertion of Infusion Device into Left Basilic Vein, Percutaneous Approach (ICD-10-PCS; principal; 2024-12-30)
DX: N39.0 Urinary tract infection, site not specified (principal); E87.20 Acidosis, unspecified; G35 Multiple sclerosis; Z79.899 Other long term (current) drug therapy; G89.4 Chronic pain syndrome; Z88.2 Allergy status to sulfonamides; Z88.1 Allergy status to other antibiotic agents; Z98.1 Arthrodesis status; Z96.82 Presence of neurostimulator; Z88.0 Allergy status to penicillin; R79.89 Other specified abnormal findings of blood chemistry; F32.A Depression, unspecified; I10 Essential (primary) hypertension; Z79.891 Long term (current) use of opiate analgesic
CPT/HCPCS: 36415; 71045; 83735; 84100; 85025; 87077; 87086; A4606; A4663; G0378; J0696; J0744; J2270; J2405; J7040

== ENCOUNTER 2025-01-01 11:13 | Inpatient (IN) | payer MEDICARE, OTHER ==
[~2025-01-01] VITALS: Ht 167.6 cm; Wt 65.8 kg
[2025-01-01 10:35] VITALS: BP 145/53; TEMP 99.5; O2SAT 96
[~2025-01-01 11:13] MED LIST changes: -BACL20TA PO; -FAMO20TA8 PO; +GABA800T11 PO; -Gabapentin PO; -MEGE40TA5 PO; -MORP60TA34 PO; +OXYB10TA30 PO; -OXYB5TAB16 PO; +PANT40TA2 PO; -TRAM50TA2 PO
[2025-01-01 11:38] VITALS: BP 153/67; TEMP 99.2
[2025-01-01 11:51] VITALS: BP 153/67; TEMP 99.2
[2025-01-01 18:30] VITALS: BP 140/55; TEMP 99.1; O2SAT 96
[2025-01-01] MEDS ORDERED: CIPR400P6 IV (18:58)
[2025-01-01] MEDS ORDERED: ACET325T53 PO (18:58)
[2025-01-01] MEDS ORDERED: MAGN400O6 PO (19:01)
[2025-01-01] MEDS ORDERED: ONDA4SYR IV (19:01)
[2025-01-01] MEDS ORDERED: PETR113P TP (19:03)
[2025-01-01] MEDS ORDERED: REMEDY ESSENTIAL ZINC PASTE 113 GM TOP PRN (19:15)
[2025-01-01] MEDS ORDERED: ACETAMINOPHEN 325 MG TABLET PO PRN (19:15)
[2025-01-01] MEDS ORDERED: LORAZEPAM 0.5 MG TABLET PO PRN (19:15)
[2025-01-01] MEDS ORDERED: GABAPENTIN 400 MG CAPSULE PO SCH (19:30)
[2025-01-01] MEDS: HYDROCODONE/APAP 5-325MG TABLET PO PRN (19:44)
[2025-01-01] MEDS ORDERED: NALOXONE HCL 0.4 MG/ML AMPUL IV PRN (21:00)
[2025-01-01] MEDS: MORPHINE SULFATE 2 MG/1 ML DISP.SYRIN IV STA (21:19)
[2025-01-01] MEDS ORDERED: LOPERAMIDE HCL 2 MG CAPSULE PO PRN (22:15)
[2025-01-01] MEDS: LOPERAMIDE HCL 2 MG CAPSULE PO ONE (22:24)
[2025-01-01] MEDS: TRAZODONE 100 MG TABLET PO SCH (22:25)
[2025-01-01] MEDS: OXYCODONE HCL 20 MG TAB.SR.12H PO SCH (22:26)
[2025-01-02] MEDS: CIPROFLOXACIN IV 400 MG in PREMIXED 1 EACH IV SCH (00:05)
[2025-01-02] MEDS: HYDROMORPHONE HCL 2 MG TABLET PO PRN (01:35)
[2025-01-02 07:01] VITALS: BP 141/60; TEMP 98.8; O2SAT 96
[2025-01-02] MEDS: busPIRone 10 MG TABLET PO SCH (08:27)
[2025-01-02] MEDS: AMLODIPINE 5 MG TABLET PO SCH (08:27)
[2025-01-02] MEDS: PANTOPRAZOLE SODIUM 40 MG TABLET.DR PO SCH (08:27)
[2025-01-02] MEDS: ONDANSETRON 4 MG/2 ML VIAL IV PRN (08:28)
[2025-01-02] MEDS: GABAPENTIN 400 MG CAPSULE PO SCH (08:28)
[2025-01-02] MEDS: TIZANIDINE HCL 4 MG TABLET PO PRN (11:21)
[2025-01-02] MEDS: MORPHINE SULFATE 2 MG/1 ML DISP.SYRIN IV ONE (11:44)
[2025-01-02 16:58] VITALS: BP 116/68; TEMP 98.7; O2SAT 99
[2025-01-02 22:50] VITALS: BP 122/51; TEMP 99.1; O2SAT 94
[2025-01-03 02:30] VITALS: TEMP 98.9
[2025-01-03 08:00] VITALS: TEMP 99.3
[2025-01-03 08:50] LABS: *BILIRUBIN,URIN NEGATIVE (NEGATIVE); *BLOOD, URINE NEGATIVE (NEGATIVE); *CLARITY,URINE CLEAR (CLEAR); *COLOR,URINE YELLOW (YELLOW); *KETONES,URINE NEGATIVE (NEGATIVE); *PROTEIN,URINE NEGATIVE (NEGATIVE); *UROBILINOGEN,URINE 0.2 E.U./dl (NORMAL); LEUKOCYTE ESTERASE ,URINE NEGATIVE (NEGATIVE); NITRITE, URINE NEGATIVE (NEGATIVE); PH,URINE 5.5 (5.0-8.0); UGLUCOSE NEGATIVE (NEGATIVE)
[2025-01-03 16:20] VITALS: TEMP 99
[2025-01-03 20:14] VITALS: BP 141/70; TEMP 98.4; O2SAT 97
[2025-01-03] MEDS: NITROFURANTOIN/NITROFURAN MAC 100 MG CAPSULE PO SCH (21:09)
[2025-01-04 05:32] VITALS: BP 122/66; TEMP 98.2; O2SAT 94
[2025-01-04 08:21] VITALS: BP 123/45; TEMP 98.3; O2SAT 98
[2025-01-04] MEDS ORDERED: PATIENT MAY USE OWN MED- MD OK PO SCH (09:00)
[2025-01-04 16:33] VITALS: BP 143/42; TEMP 98.6; O2SAT 95
[2025-01-04 21:00] VITALS: TEMP 98.5
[2025-01-04] MEDS: MAGNESIUM HYDROXIDE 30 ML LIQUID UDC PO PRN (21:21)
[2025-01-05] MEDS ORDERED: FLUT1BLS4 IH (06:09)
[2025-01-05 07:06] VITALS: TEMP 98.2
[2025-01-05 08:00] VITALS: BP 138/67; TEMP 97.6; O2SAT 100
[2025-01-05 16:00] VITALS: BP 141/59; TEMP 98.2; O2SAT 97
== END 2025-01-05 16:30 | disposition home health service (06) | DRG 59 ==
PROVIDERS: ADMIT Physical Medicine & Rehabilitation Pain Medicine; ATTEND Physical Medicine & Rehabilitation Pain Medicine
DX: G35 Multiple sclerosis (principal); E87.20 Acidosis, unspecified; N39.0 Urinary tract infection, site not specified; R53.1 Weakness; I10 Essential (primary) hypertension; Z88.0 Allergy status to penicillin; Z88.1 Allergy status to other antibiotic agents; Z88.2 Allergy status to sulfonamides; G89.29 Other chronic pain; F32.A Depression, unspecified; K21.9 Gastro-esophageal reflux disease without esophagitis; N32.81 Overactive bladder; Z98.1 Arthrodesis status; R79.89 Other specified abnormal findings of blood chemistry; M54.50 Low back pain, unspecified
CPT/HCPCS: A4663; J0744; J2270; J2405; J7040